=== PATIENT | male | born 1990 | race Caucasian/White ===

== ENCOUNTER 2017-06-25 08:37 | Emergency (ER) | payer OTHER ==
[2017-06-25] MEDS ORDERED: SODIUM CHLORIDE 0.9% 1,000 ML IV STA (09:13)
[2017-06-25] MEDS ORDERED: RX INFO: IV CONTRAST WAS GIVEN 1 EACH MISC MISCELLANE PRN (09:13)
[2017-06-25] MEDS ORDERED: MORPHINE SULFATE 4 MG/ML SYRINGE IV STA (09:13)
[2017-06-25] MEDS ORDERED: ORPHENADRINE 30 MG/ML 2 ML VIAL IVP STA (09:13)
[2017-06-25 10:20] LABS: Basophils % (A) 1 %; CH 29.9; CHCM 34.5; Eosinophils # (A) 0.1 k/uL (0-0.7); Eosinophils % (A) 2 %; HCT 49.6 % (39.0-53.0); HDW 2.45; HGB 16.3 gm/dL (13.0-17.5); Luc # (Auto) 0.18; Luc % (Auto) 2; Lymphocytes # (A) 2.2 k/uL (1.0-4.8); Lymphocytes % (A) 24 %; MCH 28.6 pg (25.0-35.0); MCV 86.9 fL (80.0-100.0); Mean Platelet Volume 7.7; Monocytes # (A) 0.6 k/uL (0-1.0); Monocytes % (A) 7 %; Neutrophils # (A) 5.7 k/uL (1.3-7.7); Neutrophils % (A) 65 %; RBC 5.71 m/uL (4.30-5.90); RDW 13.9 % (11.5-15.5); WBC 8.8 k/uL (3.8-10.6); WBC (Perox) 8.93
[2017-06-25 10:32] LABS: INR 1.1 (<1.2); Partial Thromboplastin Time 24.8 sec (22.0-30.0); Prothrombin Time 10.9 sec (9.0-12.0)
[2017-06-25 10:35] LABS: ALT 49 U/L (21-72); AST 31 U/L (17-59); Alkaline Phosphatase 77 U/L (38-126); Anion Gap 10 mmol/L; Blood Urea Nitrogen 13 mg/dL (9-20); Carbon Dioxide 23 mmol/L (22-30); Chloride 106 mmol/L (98-107); Glucose 102 mg/dL (74-99); Non-African American GFR(MDRD) >60 (>60 ml/min/1.73 sqM); Potassium 4.8 mmol/L (3.5-5.1); Sodium 139 mmol/L (137-145); Total Bilirubin 0.5 mg/dL (0.2-1.3); Total Protein 8.1 g/dL (6.3-8.2)
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
[2017-06-25 11:08] VITALS: BP 121/77; PULSE 89; RESP 20; TEMP 96.9
== END 2017-06-25 11:08 | disposition home or self-care (01) ==
LOC: EC 08:37
DX: S29.012A Strain of muscle and tendon of back wall of thorax, initial encounter (principal); S20.212A Contusion of left front wall of thorax, initial encounter; F17.200 Nicotine dependence, unspecified, uncomplicated; Z79.899 Other long term (current) drug therapy; Z88.0 Allergy status to penicillin; Z91.041 Radiographic dye allergy status; V86.09XA Driver of other special all-terrain or other off-road motor vehicle injured in traffic accident, initial encounter
CPT/HCPCS: 36415; 80053; 85025; 85610; 85730; 72125; 70450; 71260; 74177; 99284; 96374; 96375; 96361; J2270; J2360; Q9967

== ENCOUNTER 2018-10-19 12:16 | Emergency (ER) | payer OTHER ==
[2018-10-19 12:26] VITALS: TEMP 97.9
--- NOTE | 2018-10-19 13:49 | ED ---
Upper Extremity HPI - General Chief Complaint: Recheck/Abnormal Lab/Rx Stated Complaint: LEFT ARM PAIN/NUMBNESS Time Seen by Provider: 10/19/18 12:48 Source: patient Mode of arrival: ambulatory Limitations: no limitations - History of Present Illness Initial Comments: This is a 20-year-old male to the ER for evaluation. They presents for evaluation of nose and tingling on his left arm. Paresthesias of left arm. Patient states symptoms began when he awoke tonight, he states he felt normal last night no recent history of trauma no recent history of fever. Patient has no headaches. No neurological deficit as far as weakness in sensation. Complaint: Injury to:: left -: hour(s) Other Extremity Injury: Fingers: Left, Hand: Left (Paresthesias) Other Injuries: none Handedness: right Place: home Severity scale (1-10): 2 Improves With: none Worsens With: none Context: other (None) Associated Symptoms: numbness (And tingling) - Related Data Home Medications Medication Instructions Recorded Confirmed Omeprazole Magnesium [Prilosec OTC] 20 mg PO DAILY 06/25/17 06/25/17 Previous Rx's Medication Instructions Recorded Ibuprofen [Motrin] 600 mg PO Q6HR PRN #20 tab 06/25/17 Orphenadrine [Norflex] 100 mg PO Q12H #10 tablet.er 06/25/17 Allergies Allergy/AdvReac Type Severity Reaction Status Date / Time Penicillins Allergy Unknown Verified 10/19/18 12:26 Childhood RED DYE #40 AdvReac Nausea & Uncoded 10/19/18 12:26 Vomiting Review of Systems ROS Statement: Those systems with pertinent positive or pertinent negative responses have been documented in the HPI. ROS Other: All systems not noted in ROS Statement are negative. 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 History of Any Multi-Drug Resistant Organisms: None Reported Past Surgical History: Orthopedic Surgery Additional Past Surgical History / Comment(s): right hand Past Psychological History: Anxiety, Depression, PTSD Smoking Status: Current every day smoker Past Alcohol Use History: Occasional Past Drug Use History: Marijuana General Exam - General Exam Comments Initial Comments: Patient is neurologically intact in left upper extremity Limitations: no limitations General appearance: alert, in no apparent distress Head exam: Present: atraumatic, normocephalic, normal inspection Eye exam: Present: normal appearance, PERRL, EOMI. Absent: scleral icterus, conjunctival injection, periorbital swelling ENT exam: Present: normal exam, mucous membranes moist Neck exam: Present: normal inspection. Absent: tenderness, meningismus, lymphadenopathy Respiratory exam: Present: normal lung sounds bilaterally. Absent: respiratory distress, wheezes, rales, rhonchi, stridor Cardiovascular Exam: Present: regular rate, normal rhythm, normal heart sounds. Absent: systolic murmur, diastolic murmur, rubs, gallop, clicks GI/Abdominal exam: Present: soft, normal bowel sounds. Absent: distended, tenderness, guarding, rebound, rigid Extremities exam: Present: normal inspection, full ROM, normal capillary refill. Absent: tenderness, pedal edema, joint swelling, calf tenderness Back exam: Present: normal inspection Neurological exam: Present: alert, oriented X3, CN II-XII intact Psychiatric exam: Present: normal affect, normal mood Skin exam: Present: warm, dry, intact, normal color. Absent: rash Course Vital Signs 10/19/18 12:21 Temperature 97.9 F Pulse Rate 65 Respiratory 18 Rate Blood Pressure 126/77 O2 Sat by Pulse 97 Oximetry - Reevaluation(s) Reevaluation #1: 10/19/18 14:31 Medical record is reviewed Reevaluation #2: 10/19/18 14:31 Spoke with patient at length regarding symptoms, return if symptoms progress to significant weakness or numbness Medical Decision Making - Medical Decision Making 28 male the ER for evaluation, patient presents today for evaluation regards to left upper extremity weakness. Numbness and tingly. CTs are negative and patient can be discharged home - Radiology Data Radiology results: report reviewed (CT cervical spine CT thoracic spine negative for acute disease), image reviewed Disposition Clinical Impression: Arm paresthesia, left Disposition: HOME SELF-CARE Condition: Good Instructions: Paresthesia (ED) Is patient prescribed a controlled substance at d/c from ED?: No Referrals: None,Stated [Primary Care Provider] - 1-2 days
--- NOTE | 2018-10-19 14:21 | CT ---
EXAMINATION TYPE: CT brain cspine wo con DATE OF EXAM: 10/19/2018 COMPARISON: Previous study dated 06/25/2017. HISTORY: Left arm pain and numbness CT DLP: 1489.10 mGycm Automated exposure control for dose reduction was used. TECHNIQUE: CT scan of the head and cervical spine are performed without contrast. FINDINGS: BRAIN: Central structures are midline. There is no evidence of hydrocephalus. No acute focal lesion, mass effect or midline shift is seen. I do not see evidence of intracranial blood. Visualized portions of the paranasal sinuses and mastoids are clear. The bony calvarium is intact. IMPRESSION: NORMAL CT SCAN OF THE BRAIN. CERVICAL SPINE: Visualized portions of the lungs are clear. Prevertebral soft tissues are normal. Vertebral body height and alignment are maintained. Prevertebral soft tissues are normal. There is no significant degenerative change. No protrusions are seen. No fractures are identified. IMPRESSION: NORMAL CT SCAN OF THE CERVICAL SPINE.
--- NOTE | 2018-10-19 14:25 | CT ---
EXAMINATION TYPE: CT thoracic spine wo con DATE OF EXAM: 10/19/2018 COMPARISON: None. HISTORY: Left arm pain and numbness CT DLP: 937 mGycm Automated exposure control for dose reduction was used. FINDINGS: Visualized portions of the lungs are clear. Paraspinal soft tissues are normal. Visualized upper abdominal structures are unremarkable. There is a small sliding hiatal hernia. Vertebral body height and alignment are maintained. There is no significant degenerative change. Ther e is no evidence of protrusion. Intervertebral foramina appear widely patent. No bony lesion or fract ure is identified. IMPRESSION: NORMAL CT SCAN OF THE THORACIC SPINE.
[2018-10-19 15:08] VITALS: BP 117/82; PULSE 76; RESP 16
== END 2018-10-19 15:04 | disposition home or self-care (01) ==
LOC: EC 12:16
DX: R20.2 Paresthesia of skin (principal); R20.0 Anesthesia of skin; M79.602 Pain in left arm; F17.200 Nicotine dependence, unspecified, uncomplicated; Z79.899 Other long term (current) drug therapy; Z88.0 Allergy status to penicillin; Z91.048 Other nonmedicinal substance allergy status
CPT/HCPCS: 70450; 72125; 72128; 99284

== ENCOUNTER 2018-12-03 13:25 | Emergency (ER) | payer OTHER ==
[2018-12-03 13:39] VITALS: TEMP 98.2
[2018-12-03] MEDS ORDERED: methylPREDNISolone SOD SUCCI 125 MG/2 ML VIAL IM ONE (14:21)
[2018-12-03] MEDS ORDERED: IPRATROPIUM-ALBUTEROL 3 ML NEB INHALATION STA (14:21)
--- NOTE | 2018-12-03 14:22 | XR ---
EXAMINATION TYPE: XR chest 2V DATE OF EXAM: 12/03/2018 COMPARISON: NONE TECHNIQUE: PA and lateral views submitted. HISTORY: Cough and pain FINDINGS: The lungs are clear and there is no pneumothorax, pleural effusion, or focal pneumonia. Mild hyperin flation correlate for asthma.. IMPRESSION: 1. No acute process.
--- NOTE | 2018-12-03 14:24 | ED ---
SOB HPI - General Chief Complaint: Shortness of Breath Stated Complaint: FARSHAD, COUGH Time Seen by Provider: 12/03/18 13:53 Source: patient, RN notes reviewed Mode of arrival: ambulatory Limitations: no limitations - History of Present Illness Initial Comments: 28-year-old male presents emergency Department with chief complaint shortness of breath. Patient states he hasn't shortness breath last day or so but states he woke up this morning after work and states he's been more short of breath. Patient is a smoker, history of asthma. Patient has not recently had use an inhaler. Patient reports no fever complaints of chills. Denies nasal congestion, sore throat, headache or dizziness. Patient states it is feels tightness in his chest. Patient denies any sick contacts. Denies any chemical exposures. - Related Data Previous Rx's Medication Instructions Recorded Albuterol Sulfate [Proair Hfa] 1 - 2 puff INHALATION Q4HR PRN #1 12/03/18 inhaler predniSONE 50 mg PO DAILY #5 tab 12/03/18 Allergies Allergy/AdvReac Type Severity Reaction Status Date / Time Penicillins Allergy Unknown Verified 12/03/18 14:09 Childhood RED DYE #40 AdvReac Nausea & Uncoded 12/03/18 13:39 Vomiting Review of Systems ROS Statement: Those systems with pertinent positive or pertinent negative responses have been documented in the HPI. ROS Other: All systems not noted in ROS Statement are negative. 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 Absent: scleral icterus, conjunctival injection, periorbital swelling ENT exam: Present: normal exam, normal oropharynx, mucous membranes moist Neck exam: Present: normal inspection, full ROM. Absent: tenderness, meningismus, lymphadenopathy Respiratory exam: Present: respiratory distress (Mild), wheezes (Bilateral diffuse). Absent: normal lung sounds bilaterally, rales, rhonchi, stridor Cardiovascular Exam: Present: regular rate, normal rhythm, normal heart sounds. Absent: systolic murmur, diastolic murmur, rubs, gallop, clicks Neurological exam: Present: alert Skin exam: Present: warm, dry, intact, normal color. Absent: rash Course Vital Signs 12/03/18 12/03/18 12/03/18 13:36 14:02 14:36 Temperature 98.2 F Pulse Rate 99 94 Respiratory 22 22 Rate Blood Pressure 157/88 O2 Sat by Pulse 100 Oximetry 12/03/18 12/03/18 14:38 14:56 Temperature Pulse Rate 101 H 105 H Respiratory 20 18 Rate Blood Pressure 131/78 O2 Sat by Pulse 99 Oximetry Medical Decision Making - Medical Decision Making 28-year-old male presented for shortness breath. Patient had chest x-ray shows evidence of hyperinflation no infiltrate. Patient does have underlying asthma is improved after DuoNeb treatment. Patient we treated for asthma exacerbation be discharged on prednisone and pro-air. Smoking sensation greater than 3 minutes were counseled in detail. Disposition Clinical Impression: Asthma exacerbation Disposition: HOME SELF-CARE Condition: Stable Instructions (If sedation given, give patient instructions): Asthma (ED) Additional Instructions: Please return to the Emergency Department if symptoms worsen or any other concerns. Prescriptions: Albuterol Sulfate [Proair Hfa] 1 - 2 puff INHALATION Q4HR PRN #1 inhaler PRN Reason: difficulty in breathing predniSONE 50 mg PO DAILY #5 tab Is patient prescribed a controlled substance at d/c from ED?: No Referrals: None,Stated [Primary Care Provider] - 1-2 days Time of Disposition: 15:17
[2018-12-03 15:24] VITALS: BP 134/86; PULSE 110; RESP 20
== END 2018-12-03 15:24 | disposition home or self-care (01) ==
LOC: EC 13:25
DX: J45.901 Unspecified asthma with (acute) exacerbation (principal); F17.200 Nicotine dependence, unspecified, uncomplicated; Z71.6 Tobacco abuse counseling; Z88.0 Allergy status to penicillin; Z91.018 Allergy to other foods
CPT/HCPCS: 94640; 71046; 99285; 96372; J2930

== ENCOUNTER 2019-10-18 02:11 | Emergency (ER) | payer OTHER ==
[2019-10-18 02:25] VITALS: TEMP 98
--- NOTE | 2019-10-18 02:47 | XR ---
EXAMINATION TYPE: XR finger LT DATE OF EXAM: 10/18/2019 COMPARISON: NONE HISTORY: Pain TECHNIQUE: 3 views FINDINGS: I see no fracture nor dislocation. Joint spaces are normal. Soft tissues appear normal. IMPRESSION: Negative left thumb exam.
--- NOTE | 2019-10-18 02:50 | ED ---
Upper Extremity HPI - General Chief Complaint: Extremity Injury, Upper Stated Complaint: Thumb pain Time Seen by Provider: 10/18/19 02:32 Source: patient Mode of arrival: ambulatory Limitations: no limitations - History of Present Illness Initial Comments: Fredy is a 29-year-old gentleman who presents to the emergency department today for pain in the left thumb. Patient reports that he was using his left thumb to push down on something when his hand moved an odd way and he jammed his thumb. He thinks he may have also hyperextended his thumb. Patient reports since that time is been having some discomfort in the thenar eminence. 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 He believes he just strained or sprained it he needs a work note. - Related Data Previous Rx's Medication Instructions Recorded Albuterol Sulfate [Proair Hfa] 1 - 2 puff INHALATION Q4HR PRN #1 12/03/18 inhaler predniSONE 50 mg PO DAILY #5 tab 12/03/18 Allergies Allergy/AdvReac Type Severity Reaction Status Date / Time Penicillins Allergy Unknown Verified 10/18/19 02:25 Childhood RED DYE #40 AdvReac Nausea & Uncoded 10/18/19 02:25 Vomiting Review of Systems ROS Statement: Those systems with pertinent positive or pertinent negative responses have been documented in the HPI. ROS Other: All systems not noted in ROS Statement are negative. 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 Patient is nontoxic and well-hydrated and is in no distress. HENT: Normocephalic, Atraumatic. EYES: PERRL, EOMI PULMONARY: Unlabored respirations. 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 Patient was placed in a thumb spica splint due to pain and advised follow-up with primary care or orthopedic for repeat imaging persistent pain. Disposition Clinical Impression: Thumb pain Disposition: HOME SELF-CARE Condition: Stable Instructions (If sedation given, give patient instructions): Hand Sprain (ED) Additional Instructions: Keep the hand splinted, apply ice, take NSAID medications as needed Follow up with PCP next week for re-evaluation, you may need to follow up with orthopedic surgery for repeat images in the next week if you are having persistent pain. X-rays cannot always identify very small fractures severe having persistent pain you will need repeat x-rays and evaluation by an orthopedic surgeon Is patient prescribed a controlled substance at d/c from ED?: No Referrals: None,Stated [Primary Care Provider] - 1-2 days
[2019-10-18 03:20] VITALS: BP 129/79; PULSE 77; RESP 18
== END 2019-10-18 03:20 | disposition home or self-care (01) ==
LOC: EC 02:11
DX: S69.92XA Unspecified injury of left wrist, hand and finger(s), initial encounter (principal); F17.200 Nicotine dependence, unspecified, uncomplicated; Z88.0 Allergy status to penicillin; Z91.041 Radiographic dye allergy status; Z89.021 Acquired absence of right finger(s); Z86.018 Personal history of other benign neoplasm; W23.1XXA Caught, crushed, jammed, or pinched between stationary objects, initial encounter; Y93.89 Activity, other specified
CPT/HCPCS: 29125; 99283

== ENCOUNTER 2020-01-19 16:04 | Emergency (ER) | payer OTHER ==
[2020-01-19 16:10] VITALS: BP 151/82; PULSE 87; RESP 18; TEMP 97.7
--- NOTE | 2020-01-19 16:55 | XR ---
EXAMINATION TYPE: XR hand complete RT DATE OF EXAM: 01/19/2020 CLINICAL HISTORY: Generalized pain. TECHNIQUE: Frontal, lateral and oblique images of the right hand are obtained. COMPARISON: None. FINDINGS: Amputation defects proximal metaphysis level fourth proximal phalanx and proximal metadiaph ysis third proximal phalanx along with mid diaphysis second proximal phalanx all identified. No acute fracture or dislocation is seen. Joint spaces fairly well maintained. Punctate 2 mm foreign body in the soft tissue near ulnar aspect proximal metaphysis fifth proximal phalanx on frontal and oblique i mages less well seen on lateral views due to osseous overlap. IMPRESSION: As above.
--- NOTE | 2020-01-19 16:57 | ED ---
General Adult HPI - General Chief complaint: Extremity Problem,Nontraumatic Stated complaint: hand pain Time Seen by Provider: 01/19/20 16:13 Source: patient, RN notes reviewed, old records reviewed Mode of arrival: ambulatory Limitations: no limitations - History of Present Illness Initial comments: Patient is a 29-year-old male who presents emergency Department today with complaints of right hand pain. Patient reports he had a neuroma removed doesn't 17 is having increased pain sensation to that area. Patient reports he is a second third and fourth digit amputee on the right hand. Patient states that he is noticed worsening pain was previous normal is removed for the past month. Patient states that he has had no trauma to the hand recently. - Related Data Previous Rx's Medication Instructions Recorded Albuterol Sulfate [Proair Hfa] 1 - 2 puff INHALATION Q4HR PRN #1 12/03/18 inhaler predniSONE 50 mg PO DAILY #5 tab 12/03/18 Ibuprofen [Motrin] 600 mg PO Q8HR PRN #20 tab 01/19/20 Allergies Allergy/AdvReac Type Severity Reaction Status Date / Time Penicillins Allergy Unknown Verified 01/19/20 16:12 Childhood RED DYE #40 AdvReac Nausea & Uncoded 01/19/20 16:12 Vomiting Review of Systems ROS Statement: Those systems with pertinent positive or pertinent negative responses have been documented in the HPI. ROS Other: All systems not noted in ROS Statement are negative. 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 Alert and oriented 3. Patient appears in no acute distress. Limitations: no limitations General appearance: alert, in no apparent distress Head exam: Present: atraumatic, normocephalic, normal inspection Eye exam: Present: normal appearance, PERRL, EOMI. Absent: scleral icterus, conjunctival injection, periorbital swelling ENT exam: Present: normal exam, mucous membranes moist Neck exam: Present: normal inspection. Absent: tenderness, meningismus, lymphadenopathy Respiratory exam: Present: normal lung sounds bilaterally. Absent: respiratory distress, wheezes, rales, rhonchi, stridor Cardiovascular Exam: Present: regular rate, normal rhythm, normal heart sounds. Absent: systolic murmur, diastolic murmur, rubs, gallop, clicks GI/Abdominal exam: Present: soft, normal bowel sounds. Absent: distended, tenderness, guarding, rebound, rigid Extremities exam: Present: normal inspection, full ROM, normal capillary refill. Absent: tenderness, pedal edema, joint swelling, calf tenderness Right Forearm Wrist exam: Present: normal inspection, full ROM Hand Wrist exam: Present: tenderness (between 2nd and 3rd metacrpals. ). Absent: normal inspection ( has amputated second third and fourth digit. Tenderness between the second and third digit in the webspace between the second and third metacarpals.), full ROM Back exam: Present: normal inspection Neurological exam: Present: alert, oriented X3, CN II-XII intact Psychiatric exam: Present: normal affect, normal mood Skin exam: Present: warm, dry, intact, normal color. Absent: rash Course Vital Signs 01/19/20 16:07 Temperature 97.7 F Pulse Rate 87 Respiratory 18 Rate Blood Pressure 151/82 O2 Sat by Pulse 96 Oximetry Medical Decision Making - Medical Decision Making 29-year-old male presents today for evaluation with concern for recurrence of neuroma. Patient reports that his hand surgeon at [facility] removed this. He said a amputee over the second third and fourth digit. Patient has no acute fracture dislocation of his x-rays today. Joint spaces are maintained. He does have a 2 mm foreign body near the fifth medical proximal phalanx. This is not where area Patient is tender. I discussed the anti-inflammatory medicine and be treatment for patient's pain and advised to follow-up with orthopedic hand specialist. He requests a work note. - Radiology Data Radiology results: report reviewed X-ray shows a beautician defects proximal metaphysis of the left fourth proximal phalanx and proximal metadiaphysis third proximal phalanx along with mid diaphysis second proximal phalanx. No fracture dislocation. Joint spaces maintained. Punctate 2 mm foreign body in the soft tissue near the ulnar aspect of the proximal fifth proximal phalanx on the frontal and oblique images last seen on lateral views due to osseous overlap. Disposition Clinical Impression: Hand pain, History of neuroma Disposition: HOME SELF-CARE Condition: Good Instructions (If sedation given, give patient instructions): Neuroma Excision (DC), Arthralgia (ED) Additional Instructions: Patient advised take anti-inflammatory medication for pain. Follow-up with your orthopedic hand specialist. Return to the emergency department if any alarming signs or symptoms occur. Prescriptions: Ibuprofen [Motrin] 600 mg PO Q8HR PRN #20 tab PRN Reason: Pain Is patient prescribed a controlled substance at d/c from ED?: No Referrals: None,Stated [Primary Care Provider] - 1-2 days Rico Petty DO [Doctor of Osteopathic Medicine] - 1-2 days Hubert Boyd DO [Doctor of Osteopathic Medicine] - 1-2 days Time of Disposition: 17:06
== END 2020-01-19 17:32 | disposition home or self-care (01) ==
LOC: EC 16:04
DX: M79.641 Pain in right hand (principal); Z86.018 Personal history of other benign neoplasm; M79.5 Residual foreign body in soft tissue; Z89.021 Acquired absence of right finger(s); F17.200 Nicotine dependence, unspecified, uncomplicated; Z88.0 Allergy status to penicillin; Z91.048 Other nonmedicinal substance allergy status
CPT/HCPCS: 99284

== ENCOUNTER 2020-06-15 09:05 | Emergency (ER) | payer OTHER ==
[2020-06-15 09:11] VITALS: BP 143/64; TEMP 98.1
--- NOTE | 2020-06-15 09:40 | ED ---
ENT HPI - General Chief complaint: Dental/Oral Stated complaint: Tooth infection Time Seen by Provider: 06/15/20 09:25 Source: patient, RN notes reviewed, old records reviewed Mode of arrival: ambulatory Limitations: no limitations - History of Present Illness Initial comments: Patient is a 29-year-old male who presents return today with left lower molar pain starting at 1:00 this morning while he was at work. Patient states that he did not bite or break the tooth to cause the pain. He denies any associative fevers or chills. He reports he's noticed some swelling to the lower jaw. He reports she does still have his wisdom teeth. He denies any difficulty breathing or swallowing. - Related Data Home Medications Medication Instructions Recorded Confirmed Omeprazole 40 mg PO DAILY 06/15/20 06/15/20 Previous Rx's Medication Instructions Recorded clindamycin HCL [Cleocin] 300 mg PO Q8H #21 cap 06/15/20 Allergies Allergy/AdvReac Type Severity Reaction Status Date / Time Penicillins Allergy Unknown Verified 06/15/20 09:39 Childhood RED DYE #40 AdvReac Nausea & Uncoded 06/15/20 09:39 Vomiting Review of Systems ROS Statement: Those systems with pertinent positive or pertinent negative responses have been documented in the HPI. ROS Other: All systems not noted in ROS Statement are negative. 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 No significant distress. Limitations: no limitations General appearance: alert, in no apparent distress Head exam: Present: atraumatic, normocephalic, normal inspection Eye exam: Present: normal appearance, PERRL, EOMI. Absent: scleral icterus, conjunctival injection, periorbital swelling ENT exam: Present: normal exam, mucous membranes moist, other (Patient has evidence of impacted left-sided wisdom tooth. No focal drainable abscess at this time. Minimal gingival erythema. No broken tooth in the lower jaw. Some minor dental caries are noted in the surrounding molars) Neck exam: Present: normal inspection. Absent: tenderness, meningismus, lymphadenopathy Respiratory exam: Present: normal lung sounds bilaterally. Absent: respiratory distress, wheezes, rales, rhonchi, stridor Cardiovascular Exam: Present: regular rate, normal rhythm, normal heart sounds. Absent: systolic murmur, diastolic murmur, rubs, gallop, clicks GI/Abdominal exam: Present: soft, normal bowel sounds. Absent: distended, tenderness, guarding, rebound, rigid Extremities exam: Present: normal inspection, full ROM, normal capillary refill. Absent: tenderness, pedal edema, joint swelling, calf tenderness Back exam: Present: normal inspection Neurological exam: Present: alert, oriented X3, CN II-XII intact Psychiatric exam: Present: normal affect, normal mood Course Vital Signs 06/15/20 06/15/20 09:09 09:55 Temperature 98.1 F Pulse Rate 100 80 Respiratory 17 14 Rate Blood Pressure 143/64 O2 Sat by Pulse 99 98 Oximetry Medical Decision Making - Medical Decision Making 29-year-old male presents with onset of left-sided lower dental pain. Patient's pain seems to be coming from impacted wisdom tooth. There is some gingival erythema. Discussed Patient should follow-up with dental clinic concerning the Patient on antibiotic for possible early infection. There is no drainable abscess at this time. Discussed return parameters and follow up with dentist. Disposition Clinical Impression: Pain, dental Disposition: HOME SELF-CARE Condition: Good Instructions (If sedation given, give patient instructions): Toothache (ED) Additional Instructions: [facility] [id number] [place] [address] [phone] (existing clients only) For new clients: [phone] 1st consult: $50 (includes Xrays) Usually 30% less then private dentist for visits after. [employer] Have to pay $50 for Xrays anmd rest is covered. [phone] Prescriptions: clindamycin HCL [Cleocin] 300 mg PO Q8H #21 cap Is patient prescribed a controlled substance at d/c from ED?: No Referrals: None,Stated [Primary Care Provider] - 1-2 days Time of Disposition: 09:38
[2020-06-15 09:56] VITALS: PULSE 80; RESP 14
== END 2020-06-15 09:55 | disposition home or self-care (01) ==
LOC: EC 09:05
DX: K02.9 Dental caries, unspecified (principal); F17.200 Nicotine dependence, unspecified, uncomplicated; Z88.0 Allergy status to penicillin; Z91.041 Radiographic dye allergy status
CPT/HCPCS: 99283

== ENCOUNTER 2020-07-09 11:35 | Emergency (ER) | payer OTHER ==
[2020-07-09 11:45] VITALS: BP 117/70; PULSE 74; RESP 18; TEMP 98.1
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
== END 2020-07-09 12:14 | disposition home or self-care (01) ==
LOC: EC 11:35
DX: T25.231A Burn of second degree of right toe(s) (nail), initial encounter (principal); B35.3 Tinea pedis; T25.221A Burn of second degree of right foot, initial encounter; F17.200 Nicotine dependence, unspecified, uncomplicated; Z88.0 Allergy status to penicillin; Z91.041 Radiographic dye allergy status; X08.8XXA Exposure to other specified smoke, fire and flames, initial encounter; Y92.89 Other specified places as the place of occurrence of the external cause
CPT/HCPCS: 99283

== ENCOUNTER 2020-07-21 19:42 | Emergency (ER) | payer OTHER ==
[2020-07-21] MEDS ORDERED: KETOROLAC 15 MG/ML 1 ML VIAL IM STA (20:25)
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
[2020-07-21 22:13] VITALS: BP 121/87; PULSE 76; RESP 18; TEMP 97.6
== END 2020-07-21 22:13 | disposition home or self-care (01) ==
LOC: EC 19:42
DX: S00.83XA Contusion of other part of head, initial encounter (principal); H72.91 Unspecified perforation of tympanic membrane, right ear; R42 Dizziness and giddiness; F17.200 Nicotine dependence, unspecified, uncomplicated; Z79.899 Other long term (current) drug therapy; Z88.0 Allergy status to penicillin; Z91.09 Other allergy status, other than to drugs and biological substances; Y04.8XXA Assault by other bodily force, initial encounter; Y92.89 Other specified places as the place of occurrence of the external cause
CPT/HCPCS: 72125; 70486; 70450; 99284; 96372; J1885

== ENCOUNTER 2020-08-20 00:48 | Emergency (ER) | payer BC, OTHER ==
[2020-08-20 00:57] VITALS: BP 118/81; PULSE 89; RESP 18; TEMP 98
--- NOTE | 2020-08-20 01:29 | ED ---
Extremity Problem HPI - General Chief complaint: Extremity Problem,Nontraumatic Stated complaint: right hand extremity pain Time Seen by Provider: 08/20/20 01:05 Source: patient Mode of arrival: ambulatory Limitations: no limitations - History of Present Illness Initial comments: 29yo male presenting for work note. Patient states that he needs work note-he has been on for 7 days straight and his hand with previous finger amputation is sore. Denies additional complaints/concerns. Patient denies finger swelling, redness fevers or new injuries. - Related Data Home Medications Medication Instructions Recorded Confirmed Omeprazole 40 mg PO DAILY 06/15/20 06/15/20 Previous Rx's Medication Instructions Recorded clindamycin HCL [Cleocin] 300 mg PO Q8H #21 cap 06/15/20 terbinafine HCL [LamiSIL AT] 1 applic TOPICAL BID #12 gram 07/09/20 Allergies Allergy/AdvReac Type Severity Reaction Status Date / Time Penicillins Allergy Unknown Verified 08/20/20 00:57 Childhood RED DYE #40 AdvReac Nausea & Uncoded 08/20/20 00:57 Vomiting Review of Systems ROS Statement: Those systems with pertinent positive or pertinent negative responses have been documented in the HPI. ROS Other: All systems not noted in ROS Statement are negative. 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 Eye: Pupils are equal, round and reactive to light, extra-ocular movements are intact. No nystagmus. There is normal conjunctiva bilaterally. No signs of icterus. Musculoskeletal: Missing digits 2-4, 5 is half amputated. Normal ROM, no tenderness. Strength 5/5. Sensation intact. radial pulses equal bilaterally 2+. Neurological: A&O x 3. CN II-XII intact, There are no obvious motor or sensory deficits. Coordination appears grossly intact. Speech is normal. Skin: Skin is warm and dry and no rashes or lesions are noted. Psychiatric: Cooperative, appropriate mood & affect, normal judgment. Limitations: no limitations Course Vital Signs 08/20/20 00:53 Temperature 98 F Pulse Rate 89 Respiratory 18 Rate Blood Pressure 118/81 O2 Sat by Pulse 97 Oximetry Medical Decision Making - Medical Decision Making 29 yo male presenting for cc of hand pain work note. no PE findings concerning infection, or new injury. noted provided patient discharged appearing well. Disposition Clinical Impression: Right hand pain Disposition: HOME SELF-CARE Condition: Good Instructions (If sedation given, give patient instructions): Arthralgia (ED) Additional Instructions: Please use medication as discussed. Please follow-up with family doctor in the next 2 days.. Please return to emergency room if the symptoms increase or worsen or for any other concerns. Is patient prescribed a controlled substance at d/c from ED?: No Referrals: None,Stated [Primary Care Provider] - 1-2 days Time of Disposition: 01:29
== END 2020-08-20 01:30 | disposition home or self-care (01) ==
LOC: EC 00:48
DX: Z02.1 Encounter for pre-employment examination (principal); M79.641 Pain in right hand; F17.200 Nicotine dependence, unspecified, uncomplicated; Z88.0 Allergy status to penicillin; Z91.041 Radiographic dye allergy status; Z89.021 Acquired absence of right finger(s)
CPT/HCPCS: 99283

== ENCOUNTER 2020-09-20 19:31 | Emergency (ER) | payer OTHER ==
[2020-09-20 19:54] VITALS: RESP 18
[2020-09-20] MEDS ORDERED: IBUPROFEN 600 MG TAB PO STA (21:24)
[2020-09-20] MEDS ORDERED: guaiFENesin-DM 600/30MG 1 EACH TAB.ER.12H PO ONE (21:30)
--- NOTE | 2020-09-20 21:43 | ED ---
General Adult HPI - General Chief complaint: Nausea/Vomiting/Diarrhea Stated complaint: Cough,Diarrhea,Body aches Time Seen by Provider: 09/20/20 21:09 Source: patient Mode of arrival: ambulatory Limitations: no limitations - History of Present Illness Initial comments: 30-year-old male presents to emergency department this evening with complaints of feeling poorly including generalized headache, marked fatigue, dry cough, mild shortness of breath, and a few episodes of diarrhea today. States his symptoms began 24 hours prior to arrival; denies any attempt to treat symptoms prior to arrival. Patient denies any recent rash, fever, chills, chest pain, abdominal pain, nausea, vomiting, constipation, back pain, numbness, tingling, dizziness, weakness, hematuria, dysuria, urinary urgency, urinary frequency, visual changes, or any other complaints. - Related Data Home Medications Medication Instructions Recorded Confirmed Omeprazole 40 mg PO DAILY 06/15/20 09/20/20 Allergies Allergy/AdvReac Type Severity Reaction Status Date / Time Penicillins Allergy Unknown Verified 09/20/20 21:42 Childhood RED DYE #40 AdvReac Nausea & Uncoded 09/20/20 19:54 Vomiting Review of Systems ROS Statement: Those systems with pertinent positive or pertinent negative responses have been documented in the HPI. ROS Other: All systems not noted in ROS Statement are negative. 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 Initial temperature 98.9F, pulse 91, respirations 18, blood pressure 121/67, pulse ox 97% on room air.) General appearance: alert, in no apparent distress ENT exam: Present: normal exam, normal oropharynx, mucous membranes moist Respiratory exam: Present: normal lung sounds bilaterally. Absent: respiratory distress, wheezes, rales, rhonchi, stridor Cardiovascular Exam: Present: regular rate, normal rhythm, normal heart sounds. Absent: systolic murmur, diastolic murmur, rubs, gallop, clicks GI/Abdominal exam: Present: soft, normal bowel sounds. Absent: distended, tenderness, guarding, rebound, rigid Neurological exam: Present: alert, oriented X3, CN II-XII intact Psychiatric exam: Present: normal affect, normal mood Skin exam: Present: warm, dry, intact, normal color. Absent: rash Course Vital Signs 09/20/20 19:52 Temperature 98.9 F Pulse Rate 91 Respiratory 18 Rate Blood Pressure 121/67 O2 Sat by Pulse 97 Oximetry Medical Decision Making - Medical Decision Making 30-year-old male presents to the emergency department with complaints of feeling poorly for the past 24 hours. States symptoms include mild headache, marked fatigue, a dry cough, and a few episodes of diarrhea today. Patient does express concern about possible COVID exposure. Patient was given Motrin for his headache and Mucinex for his cough. Reports improvement. Chest x-ray, influenza , and Covid negative. Work note was provided. Patient was instructed to go home and rest. Encouraged to follow up with his primary care provider for recheck. Return parameters were discussed in detail. Patient verbalizes understanding and agrees with this plan. - Lab Data Lab Results 09/20/20 Range/Units 22:23 Coronavirus (PCR) Not Detected (Not Detectd) Influenza Type A RNA Not Detected (Not Detectd) Influenza Type B (PCR) Not Detected (Not Detectd) Disposition Clinical Impression: Upper respiratory infection, Diarrhea Disposition: HOME SELF-CARE Condition: Good Instructions (If sedation given, give patient instructions): Upper Respiratory Infection (ED), Acute Diarrhea (ED) Additional Instructions: Rest. Increase fluids. Follow-up with primary care doctor in the next 1-2 days for recheck. Return to the emergency department with any new, worsening, or concerning symptoms. Is patient prescribed a controlled substance at d/c from ED?: No Referrals: None,Stated [Primary Care Provider] - 1-2 days Time of Disposition: 23:25
--- NOTE | 2020-09-20 22:53 | XR ---
EXAMINATION TYPE: XR chest 2V DATE OF EXAM: 09/20/2020 COMPARISON: 12/03/2018 HISTORY: Cough and congestion TECHNIQUE: FINDINGS: Heart and mediastinum are normal. Lungs are clear. Diaphragm is normal. Bony thorax appears normal. IMPRESSION: Normal chest. No change.
[2020-09-20 23:22] LABS: SARS-CoV-2 RNA Rapid Abbott Not Detected (Not Detectd)
[2020-09-20 23:38] VITALS: BP 112/66; PULSE 72; TEMP 98.2
== END 2020-09-20 23:36 | disposition home or self-care (01) ==
LOC: EC 19:31
DX: J06.9 Acute upper respiratory infection, unspecified (principal); R19.7 Diarrhea, unspecified; F17.200 Nicotine dependence, unspecified, uncomplicated; Z88.0 Allergy status to penicillin; Z91.041 Radiographic dye allergy status; Z20.828 Contact with and (suspected) exposure to other viral communicable diseases
CPT/HCPCS: 71046; 87502; 87635; 99284

== ENCOUNTER → 2020-09-30 | Outpatient (CLI) | payer OTHER | END | disposition home or self-care (01) | LOC: LABWHC1 12:23 | PROVIDERS: ATTEND Emergency Medicine | DX: Z20.828 Contact with and (suspected) exposure to other viral communicable diseases (principal) | CPT/HCPCS: U0003; C9803 ==

== ENCOUNTER 2020-12-16 08:25 | Emergency (ER) | payer OTHER ==
[2020-12-16 08:32] VITALS: RESP 18
[2020-12-16] MEDS ORDERED: IBUPROFEN 600 MG TAB PO STA (08:34)
[2020-12-16] MEDS ORDERED: SODIUM CHLORIDE 0.9% 500 ML 500 ML IV STA (08:34)
--- NOTE | 2020-12-16 08:43 | ED ---
URI HPI - General Chief Complaint: Upper Respiratory Infection Stated Complaint: Headache,Chest Congestion Time Seen by Provider: 12/16/20 08:34 Source: patient, RN notes reviewed Mode of arrival: ambulatory Limitations: no limitations - History of Present Illness Initial Comments: Patient is a 30-year-old male that presented to the emergency department complaining of cough, loss of sensitivity taste and other upper respiratory issues. Patient did report that he is a smoker of cigarettes daily but hasn't smoked last 2 days. He did note that he lost his sense of taste 3 days ago. He also reported a cough that been mostly dry with some occasional mucousy phlegm. He noted that he is not short of breath not having chest pains. He stated that it has gotten better since the first couple days. He denied being tested for covert in the past. She was in no apparent distress or pain. He denied any fever fatigue chills night sweats headache nausea vomiting diarrhea constipation productive cough. - Related Data Home Medications Medication Instructions Recorded Confirmed Omeprazole 40 mg PO DAILY 06/15/20 09/20/20 Allergies Allergy/AdvReac Type Severity Reaction Status Date / Time Penicillins Allergy Unknown Verified 12/16/20 10:00 Childhood RED DYE #40 AdvReac Nausea & Uncoded 12/16/20 10:00 Vomiting Review of Systems ROS Statement: Those systems with pertinent positive or pertinent negative responses have been documented in the HPI. ROS Other: All systems not noted in ROS Statement are negative. 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 History of Any Multi-Drug Resistant Organisms: None Reported Past Surgical History: Orthopedic Surgery Additional Past Surgical History / Comment(s): right hand surgery 2017 Past Psychological History: No Psychological Hx Reported, Anxiety, Depression, PTSD Smoking Status: Current every day smoker Past Alcohol Use History: None Reported, Occasional Past Drug Use History: None Reported, Marijuana General Exam Limitations: no limitations General appearance: alert, in no apparent distress Head exam: Present: atraumatic, normocephalic, normal inspection Eye exam: Present: normal appearance, PERRL, EOMI. Absent: scleral icterus, conjunctival injection, periorbital swelling ENT exam: Present: normal exam, mucous membranes moist Neck exam: Present: normal inspection. Absent: tenderness, meningismus, lymphadenopathy Respiratory exam: Present: rhonchi (Upper middle right lobe). Absent: respiratory distress, wheezes, rales, stridor Cardiovascular Exam: Present: regular rate, normal rhythm, normal heart sounds. Absent: systolic murmur, diastolic murmur, rubs, gallop, clicks GI/Abdominal exam: Present: soft, normal bowel sounds. Absent: distended, tenderness, guarding, rebound, rigid Extremities exam: Present: normal inspection, full ROM, normal capillary refill, other (Patient is missing second third and fourth digit on right hand, old injury.). Absent: tenderness, pedal edema, joint swelling, calf tenderness Neurological exam: Present: alert, oriented X3, CN II-XII intact, other (Sense of taste loss) Psychiatric exam: Present: normal affect, normal mood Skin exam: Present: warm, dry, intact, normal color. Absent: rash Course Vital Signs 12/16/20 12/16/20 08:29 09:32 Temperature 98.4 F Pulse Rate 90 81 Respiratory 18 18 Rate Blood Pressure 136/86 127/82 O2 Sat by Pulse 99 96 Oximetry Medical Decision Making - Medical Decision Making 30-year-old male complaining of cough, loss of taste, other upper respiratory issues. Chest x-ray ordered and rapid Covid testing ordered. Covid test negative Case discussed with Dr. Bob it was decided the patient to discharge home. And it was recommended the patient quarantine for 7-10 days. - Lab Data Lab Results 12/16/20 Range/Units 08:58 Coronavirus (PCR) Not Detected (Not Detectd) - Radiology Data Radiology results: report reviewed, image reviewed No acute cardiopulmonary process. No significant change from prior. Disposition Clinical Impression: Upper respiratory tract infection Disposition: HOME SELF-CARE Instructions (If sedation given, give patient instructions): Upper Respiratory Infection (ED) Additional Instructions: Please return to the Emergency Department if symptoms worsen or any other concerns. Follow-up primary care in 1-2 days. Rest, drink plenty of fluids. Rapid Covid test was negative, still highly consider quarantining for 7-10 days. Work note given Is patient prescribed a controlled substance at d/c from ED?: No Referrals: None,Stated [Primary Care Provider] - 1-2 days Time of Disposition: 10:05
--- NOTE | 2020-12-16 09:31 | XR ---
EXAMINATION TYPE: XR chest 2V DATE OF EXAM: 12/16/2020 COMPARISON: Chest x-ray September 20, 2020 HISTORY: Cough and shortness of breath. TECHNIQUE: Frontal and lateral views of the chest are obtained. FINDINGS: There is no focal air space opacity, pleural effusion, or pneumothorax seen. The cardiac silhouette size is within normal limits. The osseous structures are intact. IMPRESSION: No acute cardiopulmonary process. No significant change from prior
[2020-12-16 10:12] VITALS: BP 123/80; PULSE 82
[2020-12-16 10:13] VITALS: TEMP 98.5
== END 2020-12-16 10:15 | disposition home or self-care (01) ==
LOC: EC 08:25
DX: J06.9 Acute upper respiratory infection, unspecified (principal); F17.210 Nicotine dependence, cigarettes, uncomplicated; Z20.822 Contact with and (suspected) exposure to COVID-19; Z79.899 Other long term (current) drug therapy; Z88.0 Allergy status to penicillin; Z91.09 Other allergy status, other than to drugs and biological substances
CPT/HCPCS: 71046; 87635; 96360; 99284

== ENCOUNTER 2021-01-20 07:47 | Day surgery (SDC) | payer OTHER ==
[2021-01-17 16:14] VITALS: BMI 29.5
[~2021-01-20 07:47] MED LIST: LACTATED RINGERS 1,000 ML IV SCH; LIDOCAINE 1% (10MG/ML) FOR IV START INTRADERMA PRN
[2021-01-20 08:48] VITALS: TEMP 97.1
[2021-01-20] MEDS ORDERED: LIDOCAINE 1% INJ 10MG/ML (20 ML MDV) ONE (09:08)
[2021-01-20] MEDS ORDERED: PROPOFOL 10 MG/ML 20 ML VIAL IV ONE (09:08)
--- NOTE | 2021-01-20 09:34 | P.PCN ---
Date of Procedure: 01/20/21 Description of Procedure: BRIEF HISTORY: Patient is a 30-year-old male with long-standing history of reflux disease. Currently on omeprazole 40 mg twice daily he reports persistent burning reflux and epigastric pain. PROCEDURE PERFORMED: Esophagogastroduodenoscopy with biopsy. PREOPERATIVE DIAGNOSIS: Reflux, GERD. ESTIMATED BLOOD LOSS: Minimal. IV sedation per anesthesia. PROCEDURE: After informed consent was obtained, the patient was brought into the endoscopy unit. IV sedation was administered by Anesthesia under continuous monitoring. Initially the Olympus GIF-190 video endoscope was inserted into the mouth. Esophagus intubated without any difficulty. It was gradually advanced into the stomach and duodenum and carefully examined. The bulb and the second part of the duodenum appeared normal, with biopsies taken. The scope at this time was withdrawn to the stomach, adequately insufflated with air, and upon careful examination, mucosa of the antrum, body, cardia and the fundus appeared normal except for some mild scattered erythema in the antrum and body suggestive of mild gastritis and a moderate amount of retained food debris in the stomach. The scope was then withdrawn into the esophagus. The GE junction was located at 35 cm from the incisors and biopsied. 6 cm hiatal hernia noted. The esophagus appeared normal. There were no erosions or ulcerations seen and the patient tolerated the procedure well. IMPRESSION: 1. Mild gastritis. 2. Large hiatal hernia. 3. Moderate amount of food in the stomach, with the patient stating after the procedure that he did eat this morning. RECOMMENDATIONS: The findings of this examination were discussed with the patient and his family. Okay to resume diet okay to resume medications. Await pathology from biopsies. Follow up in the GI clinic in the next 2-3 weeks to go over results of biopsies and for further management. Consider referral to surgeon for hiatal hernia repair the size of the hernia and the chronicity of his symptoms .
[2021-01-20 09:55] VITALS: RESP 17
[2021-01-20 10:34] VITALS: BP 106/66; PULSE 86
== END 2021-01-20 10:42 | disposition home or self-care (01) ==
LOC: ORWHC2ENDO 07:47
PROVIDERS: ATTEND Internal Medicine
DX: K29.80 Duodenitis without bleeding (principal); K31.9 Disease of stomach and duodenum, unspecified; K29.70 Gastritis, unspecified, without bleeding; K44.9 Diaphragmatic hernia without obstruction or gangrene; K21.9 Gastro-esophageal reflux disease without esophagitis; F17.200 Nicotine dependence, unspecified, uncomplicated; Z98.890 Other specified postprocedural states; Z79.899 Other long term (current) drug therapy; Z88.0 Allergy status to penicillin; Z91.02 Food additives allergy status
CPT/HCPCS: 88305; 43239; J2001; J2704

== ENCOUNTER 2024-04-02 17:44 | Emergency (ER) | payer OTHER ==
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
[2024-04-02 18:50] VITALS: RESP 18
[2024-04-02] MEDS: MORPHINE SULFATE 4 MG/ML SYRINGE IV STA (19:01)
[2024-04-02 19:12] LABS: Basophils % (A) 0 %; Eosinophils # (A) 0.1 k/uL (0-0.7); Eosinophils % (A) 2 %; HCT 37.4 % (39.0-53.0); HGB 11.6 gm/dL (13.0-17.5); Hypochromasia Slight; Lymphocytes # (A) 1.9 k/uL (1.0-4.8); Lymphocytes % (A) 23 %; MCH 24.8 pg (25.0-35.0); MCHC 31.1 g/dL (31.0-37.0); Mean Platelet Volume 7.6; Monocytes # (A) 0.6 k/uL (0-1.0); Monocytes % (A) 7 %; Neutrophils # (A) 5.4 k/uL (1.3-7.7); Neutrophils % (A) 67 %; Platelet Count 294 k/uL (150-450); RBC 4.68 m/uL (4.30-5.90); RDW 14.7 % (11.5-15.5); WBC 8.1 k/uL (3.8-10.6)
--- NOTE | 2024-04-02 19:17 | XR ---
EXAMINATION TYPE: XR shoulder complete RT DATE OF EXAM: 04/02/2024 COMPARISON: NONE HISTORY: Pain TECHNIQUE: Right Shoulder examined in 3 projections. FINDINGS: The humeral head articulates with the glenoid. The acromio-clavicular junction is normal. No acute fractures or dislocations are evident. A follow up study can be performed 7-10 days from acute trauma for continued pain. MRI can be perfor med if soft tissue evaluation would be of benefit. IMPRESSION: 1. No acute osseous right shoulder abnormality.
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
[2024-04-02 19:22] LABS: Partial Thromboplastin Time 23.9 sec (22.0-30.0); Prothrombin Time 10.7 sec (10.0-12.5)
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
[2024-04-02 19:27] LABS: ALT 25 U/L (4-49); AST 29 U/L (17-59); African American GFR (CKD) >90 (>60 ml/min/1.73 sqM); Alcohol <10 mg/dL; Alkaline Phosphatase 80 U/L (38-126); Anion Gap 4 mmol/L; Blood Urea Nitrogen 13 mg/dL (9-20); Calcium 9.6 mg/dL (8.4-10.2); Carbon Dioxide 26 mmol/L (22-30); Chloride 109 mmol/L (98-107); Glucose 95 mg/dL (74-99); Non-African American GFR(CKD) >90 (>60 ml/min/1.73 sqM); Potassium 4.2 mmol/L (3.5-5.1); Sodium 139 mmol/L (137-145); Total Bilirubin 0.3 mg/dL (0.2-1.3); Total Protein 7.1 g/dL (6.3-8.2)
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
[2024-04-02 20:33] LABS: Amphetamine Screen,Urine Not Detected (NotDetected); Barbiturate Screen,Urine Not Detected (NotDetected); Benzodiazepines Screen,Urine Not Detected (NotDetected); Cocaine Screen,Urine Detected (NotDetected); Methadone Screen, Urine Not Detected (NotDetected); Opiate Screen,Urine Detected (NotDetected); Oxycodone Screen, Urine Not Detected (NotDetected); Phencyclidine Screen,Urine Not Detected (NotDetected); Tricyclic Antidepressant,Urine Not Detected (NotDetected); Urn Cannabinoid Scrn Detected (NotDetected)
[2024-04-02] MEDS: MORPHINE SULFATE 4 MG/ML SYRINGE IVP STA (20:36)
[2024-04-02 21:57] VITALS: BP 128/86; PULSE 87; TEMP 98.2
== END 2024-04-02 21:00 | disposition home or self-care (01) ==
LOC: EC 17:44
DX: S50.312A Abrasion of left elbow, initial encounter (principal); R07.9 Chest pain, unspecified; M25.511 Pain in right shoulder; F17.200 Nicotine dependence, unspecified, uncomplicated; Z88.0 Allergy status to penicillin; Z91.041 Radiographic dye allergy status; V29.99XA Rider (driver) (passenger) of other motorcycle injured in unspecified traffic accident, initial encounter; Y92.410 Unspecified street and highway as the place of occurrence of the external cause
CPT/HCPCS: 36415; 93005; 86900; 86901; 80053; 84484; 85025; 85610; 85730; 86850; 80306; 72170; 73030; 73070; 71045; 72125; 70450; 71260; 74177; 99285; 96374; 96376; G0480; J2270; 80320